=== PATIENT | male | born 1985 | race Two or more races ===

== ENCOUNTER 2018-06-05 08:39 | Emergency (ER) | payer MEDICAID ==
[~2018-06-05] VITALS: Ht 180.3 cm; Wt 120.2 kg
[2018-06-05] MEDS ORDERED: cloNIDine HCL 0.1 MG TAB PO ONE (09:00)
[2018-06-05] MEDS ORDERED: LORazepam 0.5 MG TAB PO ONE (09:45)
[2018-06-05 09:54] LABS: Basophils # (auto) 0.1 uL; Eosinophils # (auto) 0.1 uL; Eosinophils % (auto) 0.8 % (0.0-7.0); Hematocrit 49.1 % (41.0-53.0); Hemoglobin 17.2 g/dL (13.5-17.5); Lymphocytes # (auto) 1.9 uL; Lymphocytes % (auto) 29.7 % (10.0-50.0); Mean Corpuscular Hgb Conc. 35.1 g/dL (32.0-36.0); Mean Corpuscular Volume 85.6 fL (80.0-100.0); Monocytes # (auto) 0.4 uL; Monocytes % (auto) 6.8 % (0.0-12.0); Neutrophils # (auto) 3.9 uL; Neutrophils % (auto) 61.7 % (37.0-80.0); Nucleated Red Blood Cells % 0.1 %; Platelet Count (auto) 244 10^3/uL (140-450); Red Blood Cells 5.74 10^6/uL (4.5-5.90); Red Cell Distribution Width 12.8 % (11.8-14.3); White Blood Cell 6.3 10^3/uL (4.4-10.8)
[2018-06-05 10:10] LABS: Alanine Aminotransferase 85 U/L (16-61); Albumin 3.9 g/dL (3.4-5.0); Anion Gap 11 (5-15); Aspartate Aminotransferase 37 U/L (15-37); BUN/Creatinine Ratio 10.9; Blood Urea Nitrogen 10 mg/dL (7-18); Calcium 8.2 mg/dL (8.5-10.1); Carbon Dioxide 22 mmol/L (21-32); Chloride 101 mmol/L (98-107); GFR African American 123 mL/min; GFR Non-African American 101 mL/min; Glucose 328 mg/dL (74-106); Magnesium 2.1 mg/dL (1.6-2.6); Potassium 3.9 mmol/L (3.5-5.1); Sodium 134 mmol/L (136-145)
[2018-06-05 10:16] LABS: Alkaline Phosphatase 127 U/L (45-117); Bilirubin, Total 0.9 mg/dL (0.2-1.0); Total Protein 7.6 g/dL (6.4-8.2)
[2018-06-05] MEDS ORDERED: InsuLIN REG 1unit/0.01ml Soln (100units/ml) SC ONE (13:45)
[2018-06-05 14:17] VITALS: BP 174/97
== END 2018-06-05 14:24 | disposition home or self-care (01) ==
LOC: ER 08:39
DX: F41.9 Anxiety disorder, unspecified (principal); I10 Essential (primary) hypertension; R73.9 Hyperglycemia, unspecified
CPT/HCPCS: 36415; 71046; 80053; 83735; 83880; 84484; 85025; 93005; 94761

== ENCOUNTER 2018-09-03 12:04 | Emergency (ER) | payer MEDICAID ==
[~2018-09-03] VITALS: Ht 177.8 cm; Wt 113.4 kg
[2018-09-03] MEDS ORDERED: NIFEdipine 10 MG CAP PO ONE (12:30)
[2018-09-03 13:04] LABS: Basophils # (auto) 0.1 uL; Eosinophils # (auto) 0.1 uL; Eosinophils % (auto) 0.9 % (0.0-7.0); Monocytes # (auto) 0.6 uL; Monocytes % (auto) 7.3 % (0.0-12.0); Neutrophils # (auto) 5.5 uL
[2018-09-03 13:07] LABS: Basophils % (auto) 0.8 % (0.0-2.0); Hematocrit 52.3 % (41.0-53.0); Hemoglobin 17.6 g/dL (13.5-17.5); Lymphocytes % (auto) 23.7 % (10.0-50.0); Mean Corpuscular Hemoglobin 29.2 pg (28.0-32.0); Mean Corpuscular Hgb Conc. 33.6 g/dL (32.0-36.0); Mean Corpuscular Volume 86.8 fL (80.0-100.0); Neutrophils % (auto) 67.3 % (37.0-80.0); Nucleated Red Blood Cells % 0.1 %; Platelet Count (auto) 303 10^3/uL (140-450); Red Blood Cells 6.03 10^6/uL (4.5-5.90); Red Cell Distribution Width 13.3 % (11.8-14.3); White Blood Cell 8.2 10^3/uL (4.4-10.8)
[2018-09-03 13:24] LABS: Albumin 4.2 g/dL (3.4-5.0); Anion Gap 4 (5-15); Blood Urea Nitrogen 7 mg/dL (7-18); Calcium 9.2 mg/dL (8.5-10.1); Carbon Dioxide 28 mmol/L (21-32); Chloride 105 mmol/L (98-107); Glucose 154 mg/dL (74-106); Magnesium 2.5 mg/dL (1.6-2.6); Potassium 3.9 mmol/L (3.5-5.1); Sodium 137 mmol/L (136-145)
[2018-09-03 13:29] LABS: Alanine Aminotransferase 71 U/L (16-61); Alkaline Phosphatase 116 U/L (45-117); Aspartate Aminotransferase 37 U/L (15-37); BUN/Creatinine Ratio 8.3; Bilirubin, Total 0.7 mg/dL (0.2-1.0); GFR African American 136 mL/min; GFR Non-African American 113 mL/min; Total Protein 8.2 g/dL (6.4-8.2)
[2018-09-03] MEDS ORDERED: cloNIDine HCL 0.1 MG TAB PO ONE (15:15)
[2018-09-03] MEDS ORDERED: LORazepam 0.5 MG TAB PO ONE (15:45)
[2018-09-03 17:09] VITALS: BP 139/87
== END 2018-09-03 17:20 | disposition home or self-care (01) ==
LOC: EDBD 12:04 → EDUNIT# 12:04 → ER 12:10
DX: I10 Essential (primary) hypertension (principal); F41.9 Anxiety disorder, unspecified; R51 Headache; R42 Dizziness and giddiness
CPT/HCPCS: 36415; 80053; 83735; 84484; 85025

== ENCOUNTER 2021-10-19 13:21 | Emergency (ER) | payer MEDICAID ==
[~2021-10-19] VITALS: Ht 177.8 cm; Wt 117.9 kg
[2021-10-19 14:24] LABS: Basophils # (auto) 0.1 10 ^3/uL (0-0.2); Basophils % (auto) 1.1 % (0.0-2.0); Eosinophils # (auto) 0.1 10 ^3/uL (0-0.8); Eosinophils % (auto) 1.2 % (0.0-7.0); Hematocrit 45.2 % (41.0-53.0); Hemoglobin 15.5 g/dL (13.5-17.5); Lymphocytes # (auto) 2.2 10 ^3/uL (0.4-5.4); Mean Corpuscular Hemoglobin 29.3 pg (28.0-32.0); Mean Corpuscular Hgb Conc. 34.2 g/dL (32.0-36.0); Mean Corpuscular Volume 85.7 fL (80.0-100.0); Monocytes # (auto) 0.8 10 ^3/uL (0-1.3); Monocytes % (auto) 8.5 % (0.0-12.0); Neutrophils % (auto) 65.2 % (37.0-80.0); Nucleated Red Blood Cells % 0.1 %; Red Blood Cells 5.28 10^6/uL (4.5-5.90); Red Cell Distribution Width 12.9 % (11.8-14.3); White Blood Cell 9.2 10^3/uL (4.4-10.8)
[2021-10-19 14:39] LABS: Albumin 4.3 g/dL (3.4-5.0); Calcium 8.9 mg/dL (8.5-10.1); Potassium 3.5 mmol/L (3.5-5.1)
[2021-10-19 14:45] LABS: Bilirubin, Total 0.3 mg/dL (0.2-1.0); Total Protein 7.9 g/dL (6.4-8.2)
[2021-10-19] MEDS ORDERED: AZIT1POW12 PO (16:05)
[2021-10-19 16:57] VITALS: BP 158/82
== END 2021-10-19 16:59 | disposition home or self-care (01) ==
LOC: ER 13:21
DX: R07.89 Other chest pain (principal); J40 Bronchitis, not specified as acute or chronic; I10 Essential (primary) hypertension; E11.9 Type 2 diabetes mellitus without complications
CPT/HCPCS: 36415; 71045; 80053; 83735; 84443; 84484; 85025; 93005